=== PATIENT | female | born 1940 | race Caucasian/White ===

== ENCOUNTER → 2016-10-10 | Outpatient (CLI) | payer OTHER | END | disposition home or self-care (01) | LOC: PCVCIMAG 12:35 | PROVIDERS: ATTEND Internal Medicine Cardiovascular Disease | DX: I07.1 Rheumatic tricuspid insufficiency (principal); I10 Essential (primary) hypertension; E78.00 Pure hypercholesterolemia, unspecified; R06.00 Dyspnea, unspecified; R53.83 Other fatigue; R94.31 Abnormal electrocardiogram [ECG] [EKG]; R09.89 Other specified symptoms and signs involving the circulatory and respiratory systems; Z72.0 Tobacco use | CPT/HCPCS: 80061; 93005; 93306 ==

== ENCOUNTER → 2016-11-13 | Outpatient (CLI) | payer OTHER ==
[~2016-11-13] MED LIST: REGADENOSON 0.4 MG/5 ML DISP.SYRIN. IV ONE
--- NOTE | 2016-11-14 17:41 | PCVCIMAG ---
APPROVED REPORT Indications Bruit Doppler Spectral Velocity Analysis PSV / EDVPSV / EDV ECA (R) 74 / 11 cm/sECA (L) 73 / 12 cm/s dICA (R) 87 / 25 cm/sdICA (L) 90 / 28 cm/s Marguerite (R) 68 / 27 cm/smICA (L) 76 / 22 cm/s pICA (R) 64 / 19 cm/spICA (L) 62 / 16 cm/s Bulb (R) 30 / 8 cm/sBulb (L) 49 / 19 cm/s dCCA (R) 68 / 22 cm/sdCCA (L) 50 / 14 cm/s mCCA (R) 78 / 19 cm/smCCA (L) 72 / 21 cm/s Vert (R) 47 / 15 cm/sVert (L) 71 / 16 cm/s ICA/CCA 1.10ICA/CCA 1.20 Real Time B-Mode Imaging Vert. (R)AntegradeVert. (L)Antegrade Findings The right carotid bulb has moderate calcified plaque. The right proximal internal carotid artery shows <40% stenosis. The right common carotid artery shows no significant stenosis. The right external carotid artery shows no significant stenosis. The left carotid bulb has mild-moderate calcified plaque. The left proximal internal carotid artery shows <40% stenosis. The left common carotid artery shows no significant stenosis. The left external carotid artery shows no significant stenosis. Conclusion 1. Right internal carotid artery stenosos (<40%) 2. Left internal carotid artery stenosis (<40%) 3. Antegrade vertebral flow
--- NOTE | 2016-11-21 18:58 | PCVCIMAG ---
APPROVED REPORT Exam: Nuclear Stress Test Indication: Dyspnea, Abnormal EKG Patient Location: Out-Patient Stress Nurse: Nichole Phillips RN, ROBBI Doshi Tech:Joselito Josiah NMTINOB Ht: 5 ft 0 in Wt: 132 lbs BSA: 1.56 m2 HR: 64 bpm BP: 152/72 mmHg BMI: 25.7 Rhythm: NSR Medical History Medical History: HTN, Hyperlipidemia, Smoking-Current Medications: Atorvastatin, Ziac, Buspar, Celebrex, Lasix, Gabapentin, Levothyroxine, Pantoprazole, KCL, Trazadone Allergies: Levofloxacin Cardiac Risk Factors: Age Pretest Chest Pain Characteristics: No chest pain Exercise History: Sedentary Physical Disabilities: Knees Meds Held (24 hrs): Ziac NM EXAM: Myocardial Perfusion REST/STRESS Imaging Protocol: Rest Tc-99m/Stress Tc-99m 1 day Resting Data Rest SPECT myocardial perfusion imaging was performed in supine position 45 minutes following the intravenous injection of 9.5 mCi of Tc-99m Sestamibi. Time of rest injection: 819 Date: 11/13/2016 Pharmacologic Stress Pharmacologic stress test was performed by injecting Regadenoson 0.4 mg IV push followed by the intravenous injection of 28.4 mCi of Tc-99m Sestamibi. Time of stress injection: 954 Date: 11/13/2016 Administration Route: IV Administration Site: Left AC Gated Stress SPECT was performed 45 minutes after stress injection. The images were gated to evaluate regional wall motion and calculate left ventricular ejection fraction. Study Quality Study: Good Study Data Post stress, the left ventricular ejection was 74%%.. SSS: 4 SRS: 6 SDS: 3 TID = 0.85. Perfusion Small sized area of mild reversible ischemia involving the mid/apical lateral left ventricle consistent with a circumflex distribution. Wall Motion Normal left ventricular size and function with no regional wall motion abnormalities. Nuclear Conclusion Small sized area of possible mild reversible ischemia involving the mid/apical lateral left ventricle consistent with a circumflex distribution. Post stress, the left ventricular ejection was 74%. No prior study available for comparison. Interpreted by: Mayur Smith MD Electronically Approved: 11/14/2016 17:45:20 Stress Test Details Stress Test: Pharmacologic stress testing performed using 0.4 mg of regadenoson per 5 mL given IV over 10 seconds. Reason for pharmacologic stress test: arthritis, COPD. HR Resting HR: 64 bpmMax Heart Rate (APMHR): 142 bpm Max HR Achieved: 88 bpmTarget HR (85% APMHR): 120 bpm % of APMHR: 61 Recovery HR: 84 bpm BP Resting BP: 152/72 mmHg Max BP: 144/75 mmHg Recovery BP: 149/68 mmHg ECG Resting ECG: Sinus Rhythm Stress ECG: Sinus Rhythm Recovery ECG: Sinus Rhythm, NSSTT changes Clinical Reason for Termination: Completed protocol Stress Symptoms: Dyspnea, Nausea Exercise duration: 0 min 55 sec Symptoms resolved during recovery. Stress ECG Conclusion ECG: Non-ischemic <Conclusion> ECG: Non-ischemic
== END | disposition home or self-care (01) ==
LOC: PCVCIMAG 07:25
PROVIDERS: ATTEND Internal Medicine Cardiovascular Disease
DX: I65.23 Occlusion and stenosis of bilateral carotid arteries (principal); R94.31 Abnormal electrocardiogram [ECG] [EKG]; I10 Essential (primary) hypertension; E78.5 Hyperlipidemia, unspecified; J44.9 Chronic obstructive pulmonary disease, unspecified; F17.200 Nicotine dependence, unspecified, uncomplicated
CPT/HCPCS: 78452; 93017; 93880; A9500; J2785

== ENCOUNTER → 2016-11-27 | Outpatient (CLI) | payer OTHER ==
[~2016-11-27] MED LIST changes: +DIAZEPAM 10 MG TABLET. ONE; +IOHEXOL 350 MG/ML 100 ML VIAL. ONE; +IOHEXOL 350 MG/ML 50 ML VIAL. ONE; +IV NORMAL SALINE 1000ML BAG 1,000 ML ONE; +LIDOCAINE 1% Multi-Dose 20 ML VIAL. ONE; +MIDAZOLAM HCL/PF 2 MG/2 ML VIAL. ONE; -REGADENOSON 0.4 MG/5 ML DISP.SYRIN. IV ONE; +fentaNYL PF VIAL 100 MCG/2 ML VIAL ONE
--- NOTE | 2016-11-27 18:26 | PCVCINTER ---
APPROVED REPORT Patient Details Patient Status: Out-Patient Room #: 2 The patient is a 76 year-old Female Event Personnel Frankie Huff RT(R), Tomasz Malone MD, Nurys Velasquez RT(R), Bryan Peacock reconstructive surgeon Performed Left Heart Catheterization Indication Risk Factors Arterial HypertensionDysplipidemia (Type: 1), Peripheral Vascular Disease, Hypercholesterolemia, Last Creatanine 0.9Tobacco History (Current/Recent(w/in 1 year)) Procedure Narrative A sheath was inserted into the right femoral artery. Coronary angiography was performed using coronary diagnostic catheters. The right coronary system was accessed and visualized with a Diagnostic catheter. The left coronary system was accessed and visualized with a Diagnostic catheter. The left ventricle was accessed and visualized with a Diagnostic catheter. Left ventriculogram was performed in TY projection. An aortogram of the abdominal aorta was performed. Pre-demployment femoral angiogram was performed . Hemostasis was obtained with manual pressure following sheath removal without any complications. The patient tolerated the procedure well and there were no complications associated with the procedure. A hematoma occurred. There was no hematoma. Hemodynamics The aortic pressure is 143/58 mmHg with a mean of 90 mmHg. The left ventricular pressure is 147/11 mmHg with a mean of 22 mmHg. Conclusion Patient brought to the catheterization lab stable condition the right groin prepped and a sterile manner 1% Xylocaine was used for local anesthesia IV Versed for conscious sedation. A straight pigtail catheter murmur single TY ventriculogram in AP aortogram LV function was preserved. FL 4. Coronary system FR4 for the right crisis some multiple views and oblique were taken. I also selectively injected single bilateral renal arteries because of history of renal artery issues mildly diseased. Mild coronary disease. 340% RCA lesions. Otherwise widely patent. LV function preserved.Mynx closure was utilized without complication. Transferred back to see me holding for discharge later today. Impression #1 normal left ventricular size and systolic function of 60% #2 left main free of disease giving rise to LAD and circumflex #3 LAD ascends short of the apex type I with minimal irregularities #4 nondominant circumflex with minimal irregularity #5 large dominant right coronary with eccentric 3040% proximal proximal mid lesions well preserved and large PDA and SHADE system #6 left renal artery with 30-40% right renal artery mild disease Recommendations plan continue aggressive risk factor modification no indication for intervention. No lifting for 48 hours no lying in a tub Jacuzzi or Roy for one-week follow-up 6 months
== END | disposition home or self-care (01) ==
LOC: PCVCINTER 07:22
PROVIDERS: ATTEND Internal Medicine Cardiovascular Disease
DX: I25.10 Atherosclerotic heart disease of native coronary artery without angina pectoris (principal); I73.9 Peripheral vascular disease, unspecified; E78.00 Pure hypercholesterolemia, unspecified
CPT/HCPCS: 36252; 93458; 99152; 99153; C1751; C1760; C1769; C1894; J1644; J2250; J3010; J7030; Q9967

== ENCOUNTER → 2018-04-05 | Outpatient (CLI) | payer OTHER ==
--- NOTE | 2018-04-05 10:31 | PCVCIMAG ---
EXAM: BILATERAL LOWER EXTREMITY ARTERIAL DUPLEX INDICATION: Peripheral Arterial Disease. Leg pain. FINDINGS: Right Leg: Satisfactory arterial waveforms throughout the common/profunda/superficial femoral, popliteal, anterior tibial, peroneal, and posterior tibial arteries. No flow limiting stenosis seen. Left Leg: Satisfactory arterial waveforms throughout the common/profunda/superficial femoral, popliteal, anterior tibial, peroneal, and posterior tibial arteries. No flow limiting stenosis seen. IMPRESSION: No flow limiting stenosis in the right lower extremity. No flow limiting stenosis in the left lower extremity. LOC:[id number]
== END | disposition home or self-care (01) ==
LOC: PCVCIMAG 09:08
PROVIDERS: ATTEND Internal Medicine Cardiovascular Disease
DX: I73.9 Peripheral vascular disease, unspecified (principal); M79.604 Pain in right leg; M79.605 Pain in left leg; E78.00 Pure hypercholesterolemia, unspecified; Z72.0 Tobacco use
CPT/HCPCS: 93925